=== PATIENT | female | born 1995 | race African-American/Black ===

== ENCOUNTER 2020-01-13 17:12 | Emergency (ER) | payer OTHER, SELFPAY ==
[2020-01-13 17:21] VITALS: BP 116/73; PULSE 94; RESP 16; TEMP 37.8; O2SAT 97; BMI 31.1
--- NOTE | 2020-01-13 18:05 | ED.NAVMDI ---
HPI - Nausea/Vomiting/Diarrhea General Chief complaint: Nausea/Vomiting/Diarrhea Stated complaint: head, ear and mouth pain, vomiting Time Seen by Provider: 01/13/20 18:04 History of Present Illness HPI Narrative: Otherwise healthy 24-year-old woman presents with 5 days of headache that throbs when she stands and 3-4 days of aphthous ulcers in her mouth, right ear pain and right-sided mouth/jaw pain. She has no noted fevers at home, no cough. She states that she has been chilled but has not had rigors. There is no skin changes. She vomited yesterday did not eat much today and continues to be mildly nauseated. There is no abdominal pain, hematuria, dysuria or diarrhea. Related Data Previous Rx's Medication Instructions Recorded ondansetron 4 mg PO Q8H PRN #10 tab 01/13/20 Review of Systems Review of Systems ROS Unobtainable: All systems reviewed & are unremarkable except as noted in HPI and below Patient History Medical History (Updated 01/13/20 @ 18:43 by Emily De MD) Healthy adult (Acute) Social History Smoking Status: Never smoker Smoking Status: Never smoker alcohol intake frequency: holidays/special occasions only Substance Use Type: does not use Exam Narrative Exam Narrative: General: Healthy appearing, in no acute distress. Able to give a complete and coherent history. Well-nourished well-developed HEENT: Moist mucous membranes, shallow aphthous ulcer on the buccal mucosa of the lower lip and also buccal mucosa near the molars on the right side. Normal sclera with reactive pupils, no pharyngeal exudate or erythema Neck: No cervical adenopathy, supple Respiratory: Lungs are clear to auscultation, no wheezing no rales no rhonchi. Full and symmetrical air movement Cardiac: Regular rate and rhythm no murmurs no bruits Abdomen: Soft nontender good bowel tones, no flank pain Skin: Warm and dry, no rashes Extremities: No trauma, well perfused Psych: Cooperative, appropriate insight and affect Initial Vital Signs Initial Vital Signs: Vital Signs Temperature 100.1 F H 01/13/20 17:21 Pulse Rate 94 H 01/13/20 17:21 Respiratory Rate 16 01/13/20 17:21 Blood Pressure 116/73 01/13/20 17:21 Pulse Oximetry 97 11/10/20 17:21 Course Orders Ordered: ED Orders 01/13/20 18:00 COVID19 Stat Discontinued Medications Ondansetron HCl (Zofran Odt) 4 mg SL NOW ONE Stop: 01/13/20 18:26 Vital Signs Vital signs: Vital Signs - 8 hr 01/13/20 17:21 Temperature 100.1 F H Pulse Rate 94 H Respiratory Rate 16 Blood Pressure 116/73 Pulse Oximetry 97 MDM - Nausea/Vomiting/Diarrhea Lab Data Labs: Lab Results 01/13/20 Range/Units 18:00 COVID-19 PCR Negative (Negative) MDM Narrative Medical decision making narrative: 24-year-old woman with no known COVID exposures and 3-5 days of mild viral syndrome. No evidence for a bacterial etiology, strep throat, otitis media, zoster, pneumonia and COVID negative. Safe for home discharge Discharge Plan Departure Patient Disposition: Home Clinical Impression: Acute viral syndrome Instructions: DI for Viral Syndrome Activity Restrictions/Additional Instructions: Thank you for coming in today Your exam is very reassuring. I suspect that you have a mild virus that is causing the headache that your pain and the small ulcers in your mouth. I have given you a prescription for ondansetron to help if you have recurrent nausea. You do not have COVID based on testing done today in the emergency department Using 400 mg of ibuprofen (2 lwnn-bem-[id number] pills) and 1 Tylenol every 6 hours can be very helpful in controlling pain, fever and that achy all over viral feeling. I hope you feel better Prescriptions: New ondansetron 4 mg tablet,disintegrating 4 mg PO Q8H PRN (Reason: nausea and vomiting) Qty: 10 RF: 0
[2020-01-13 18:51] LABS: COVID19 -Nasal RAPID Negative (Negative)
[2020-01-13] MEDS: ONDANSETRON 4 MG ODT SL (19:11)
== END 2020-01-13 19:13 | disposition home or self-care (01) ==
PROVIDERS: Emergency Medicine; Emergency Provider Emergency Medicine
DX: B34.9 Viral infection, unspecified (principal); H92.01 Otalgia, right ear; R11.10 Vomiting, unspecified; K12.1 Other forms of stomatitis
CPT/HCPCS: 87635; 99283

== ENCOUNTER → 2020-10-25 11:05 | Outpatient (CLI) | payer OTHER, SELFPAY ==
[2020-10-25 13:11] LABS: COVID19 -Nasal RAPID Negative (Negative)
== END ==
PROVIDERS: Visit Provider Nurse Practitioner
DX: Z20.822 Contact with and (suspected) exposure to COVID-19 (principal)
CPT/HCPCS: 87635

== ENCOUNTER 2020-10-26 11:38 | Day surgery (SDC) | payer OTHER, SELFPAY ==
[2020-10-26] MEDS: SODIUM CHLORIDE 0.9% 1,000 ML 84 ML IV (11:51)
[2020-10-26 12:02] VITALS: BP 114/76; PULSE 85; RESP 16; TEMP 36.4; O2SAT 96; BMI 32.8
--- NOTE | 2020-10-26 12:37 | PM.HP.1 ---
History of Present Illness History of Present Illness Date Patient Seen: 10/26/20 Time Patient Seen: 12:37 Chief complaint: CAC Patient History Medical History Healthy adult Family & Social History Social History: household members friend(s) Tobacco & Substance use: Smoking Status Never smoker alcohol intake current alcohol intake frequency holiday/special occasion Substance Use Type does not use Meds Home Medications and Allergies Home Medications Medication Instructions Recorded Confirmed Type No Known Home Medications 10/26/20 10/26/20 History Allergies Allergy/AdvReac Type Severity Reaction Status Date / Time No Known Drug Allergies Allergy Verified 10/26/20 12:09 Review of Systems Review of Systems ROS: Yes All systems reviewed with the patient and are negative except as otherwise documented Exam Vital Signs (past 8 hours): - 10/26/20 12:02 Temperature 97.5 F L Pulse Rate 85 Respiratory Rate 16 Blood Pressure 114/76 Pulse Oximetry 96 Oxygen Delivery Method Room Air Const General: cooperative and comfortable Orientation: alert HENMT Head: normocephalic Ears: external ears normal Nose: external nose normal Face and sinus: normal facial exam Mouth: oral mucosae normal Eyes General: appearance normal, both eyes and all related structures Neck Neck: normal visual inspection Chest Chest: normal inspection of the chest Resp Effort & Inspection: normal respiratory effort Auscultation: clear to auscultation bilaterally Cardio Rate: regular rate Rhythm: regular rhythm Heart Sounds: no murmurs GI Inspection: normal to inspection Palpation: soft and No tender Auscultation: normal bowel sounds Skin General: no rashes or lesions noted and No jaundice Neuro General: patient alert and moves all extremities Cognition: normal cognition Speech: speech normal Extrem General: no pedal edema Psych Appearance: grossly normal Assessment & Plan Assessment & Plan narrative: Change in bowel habits inability to acquire family history. Colonoscopy is pursued today.
--- NOTE | 2020-10-26 12:39 | PM.PREOP ---
Pre-operative Note COVID-19 COVID-19 status: Negative Result date/Date tested (Pos, Neg/Pending): 10/25/20 Interval Note History & Physical reviewed/Exam performed by Physician: Yes Changes to H&P: No ASA Class (for procedural sedation): II
[2020-10-26] MEDS: fentaNYL 250 MCG/5 ML INJ IV (12:44)
[2020-10-26] MEDS: MIDAZOLAM 5 MG/5 ML VIAL IV (12:45)
--- NOTE | 2020-10-26 13:00 | PM.OP.ENDO ---
Operative Date/Time/Diagnoses Date of procedure: 10/26/20 Time of procedure: 13:01 Pre-op diagnosis: Change in bowel habits constipation Post-op diagnosis: same Procedure & Clinicians Study performed: Colonoscopy Same procedure as scheduled: Yes Indications: Change in bowel habit constipation Surgeon: Naeem Duggan Procedure Notes SCOAP/Timeout: Done Procedure in detail: After the risks and benefits were explained, written and verbal informed consent was obtained. The patient was brought into the procedure room and placed into the left lateral decubitus position. Conscious sedation medication was applied as per nursing documentation. Digital rectal examination was accomplished. The scope was introduced into the patient and advanced under direct visualization to the cecum as identified by the appendiceal orifice and ileocecal valve. The scope was slowly withdrawn to carefully examine the mucosa for any defects or lesions. Comprehensive imaging was accomplished throughout the rectum including the dentate line. The colon was decompressed, the scope was then removed from the patient who tolerated the procedure well. 3 mg Versed 75 mcg fentanyl Bowel prep adequate Pediatric colonoscope Scope withdrawal time: 9 minutes Sedation minutes: 15 Specimen(s): none sent Complications: none Impression: Patient had a moderately tortuous sigmoid. However no strictures no mass lesions no polyps no inflammatory features identified throughout. The terminal ileum was interrogated and appeared visually normal. There was a foreign body found in the ascending colon this appeared circular and metallic we removed this with a standard Cordova Net. Prior to sedation digital rectal examination was accomplished. The anal sphincter mechanism felt fairly tense but easily facilitated a lubricated gloved index finger. The patient was able to contract the external anal sphincter musculature and pupil rectalus muscle on command. The the patient was able to for the most part expel my finger. I did not feel the external anal sphincter mechanism relax a whole lot. She was however able to generate a propulsive force to evacuate the finger. Endoscopic diagnosis 1. Twisty left colon 2. Otherwise visually normal colonoscopy and terminal ileoscopy 3. Small right colon foreign body status post successful retrieval Post-procedure Plan for aftercare: 1. Stay hydrated and active 2. Consider a daily fiber regimen plus/minus over the counter Mirlax as needed. 3. Follow up GI clinic in the next 4-6 weeks to review response. 4. Should there be persistent symptoms of troublesome constipation than a Sitz marker study will be arranged. Disposition: PACU
[2020-10-26 13:06] VITALS: BP 96/50; PULSE 70; RESP 14; TEMP 36.2; O2SAT 98
[2020-10-26 13:11] VITALS: BP 96/50; PULSE 69; RESP 18; O2SAT 98
[2020-10-26 13:16] VITALS: BP 103/57; PULSE 82; RESP 15; O2SAT 99
[2020-10-26 13:21] VITALS: BP 102/56; PULSE 83; RESP 14; O2SAT 98
[2020-10-26 13:36] VITALS: BP 95/58; PULSE 90; RESP 14; TEMP 36.2; O2SAT 98
== END 2020-10-26 13:48 | disposition home or self-care (01) ==
PROVIDERS: PCP Student in an Organized Health Care Education/Training Program; Referring Provider Internal Medicine Gastroenterology; Visit Provider Internal Medicine Gastroenterology
PROC: 0DJD8ZZ Inspection of Lower Intestinal Tract, Via Natural or Artificial Opening Endoscopic (ICD-10-PCS; CPT 45378; principal; 2020-10-26 13:00)
DX: T18.4XXA Foreign body in colon, initial encounter (principal)
CPT/HCPCS: 45379; J2250; J3010

== ENCOUNTER → 2020-12-27 08:05 | Outpatient (CLI) | payer OTHER, SELFPAY ==
[2020-12-27 14:48] LABS: COVID19 -Nasal RAPID Negative (Negative)
== END ==
PROVIDERS: PCP Student in an Organized Health Care Education/Training Program; Visit Provider Obstetrics & Gynecology
DX: Z20.822 Contact with and (suspected) exposure to COVID-19 (principal); Z01.812 Encounter for preprocedural laboratory examination
CPT/HCPCS: 87635

== ENCOUNTER 2020-12-28 13:29 | Day surgery (SDC) | payer OTHER, SELFPAY ==
[2020-12-27 10:54] VITALS: BMI 34.0
[2020-12-28] VITALS (7 sets, daily range): BP systolic 96–117; BP diastolic 58–76; PULSE 61–102; RESP 13–21; TEMP 36.2–36.6; O2SAT 19–98; BMI 31.7
--- NOTE | 2020-12-28 | PATH_ITS ---
[facility] Accession Number: [id number] . 01 Material submitted: . UTERINE - UTERINE FIBROIDS . 01 Clinical history: . LAP MYOMECTOMY . 02 Diagnosis: Uterine Fibroids, Myomectomy: Mature smooth muscle consistent with leiomyoma(s). No evidence of malignancy. MRV 12/31/2020 1407 Local . 02 Electronically signed: . Ivy Parekh MD, Pathologist NPI- [id number] . 01 Gross description: . The specimen is received in formalin, labeled uterine fibroids and consists of multiple conley-white leiomyomata fragments weighing 68 grams in aggregate and measuring 10.0 x 8.5 x 5.5 cm. Sectioning reveals conley-white whorled cut surfaces with no areas of hemorrhage, necrosis or cystic degeneration. Customer Project Manager sections are submitted in cassettes A1-A5. ([id number]) /MRV 12/29/2020 1142 Local . 02 Pathologist provided ICD-10: D25.9 . 02 CPT . 704227 Performed at: 01 [facility] [address], [place], [place] [id number] MD Joshua Muñiz MD Phone: [phone] Performed at: 02 [facility] [address] [place], [place] [id number] MD Sima Lopez MD Phone: [phone]
[2020-12-28] MEDS: LACTATED RINGERS 1,000 ML 100 ML IV ×2 (14:20→16:24)
--- NOTE | 2020-12-28 14:33 | PM.PREOP ---
Pre-operative Note COVID-19 COVID-19 status: Negative Result date/Date tested (Pos, Neg/Pending): 12/27/20 Interval Note History & Physical reviewed/Exam performed by Physician: Yes Changes to H&P: No
--- NOTE | 2020-12-28 14:57 | SUR.OPER ---
Lithotomy on padded OR bed, head on pillow, arms secured on padded arm boards at <90 degrees abduction. Legs secured in padded yellow fins stirrups.
[2020-12-28] MEDS: CEFAZOLIN 1 GM VIAL 2 GM IV (15:25)
[2020-12-28] MEDS: BUPIVACAINE 0.5% (PF) 30 ML, EPINEPHrine 0.15 MG INJ (15:56)
[2020-12-28] MEDS: METHYLENE BLUE 50 MG/10 ML VIAL INJ (16:01)
[2020-12-28] MEDS: SODIUM CHLORIDE 0.9% 30 ML, VASOPRESSIN 20 UNIT INJ (16:02)
--- NOTE | 2020-12-28 17:07 | PM.OP.1 ---
Operative Date/Time/Diagnoses Date of procedure: 12/28/20 Time of procedure: 17:08 Pre-op diagnosis: Abdominal pain, bloating, pedunculated fibroid on ultrasound Post-op diagnosis: same Procedure & Clinicians Procedure: Laparoscopy with removal of 2 subserosal fibroids Same procedure as scheduled: Yes Indications: Abdominal pain and bloating with pedunculated fibroid seen on ultrasound Surgeon: Mahsa Lyman Click Yes if Unassisted: Yes Anesthesia Type: General Operative Notes Findings: Normal liver edge, normal bowel surface, normal appearing appendix, no internal hernias or endometriosis. 1 large and 1 small subserosal fibroid with 2 intramural fibroids. Normal-appearing tubes, ovaries. Closure Type: primary Specimen(s): other (Uterine fibroids) Estimated Blood Loss (mL): 20 Blood products transfused: none Procedure in detail: Patient was brought to the operating room where she underwent general anesthesia. She was placed in low yellowfin stirrups and prepped and draped in usual sterile fashion. 2 g of Ancef were in prior to beginning of the case. Pulsatile stockings were in place and functional. Warming was with blankets. A single-tooth tenaculum was placed on the anterior lip of the cervix and the cervix dilated to #6 Hegar dilator. The Zumi uterine manipulator was placed and balloon inflated with 3 mL of air. The area of the incisions were injected with half percent Marcaine with epinephrine. An incision was made in the umbilicus with a scalpel and the Verres needle placed in the abdomen. Confirmation of correct placement of the needle was performed by withdrawing on the syringe and then allowing fluid to fall freely through the needle. The abdomen was insufflated to 3 L of CO2. A 5 mm trocar was placed under direct visualization. 2 other 5 mm trochars were placed in the right and left lower quadrant under direct visualization after incising the skin. There did not appear to be any damage with placement of the trocars. The abdomen was examined. Using a spinal needle through the abdominal wall the base of the fibroid was injected. Using cautery the fibroid was removed coming across the stalk. Bleeding was stopped with cautery. A 2nd smaller fibroid was also removed with cautery. The area of a suprapubic incision site was injected with Marcaine with epinephrine. An 11 mm trocar was placed under direct visualization. An Endo-Catch bag was placed through the trocar and the 2 fibroids were placed in the bag. The bag was brought up to the incision and the fibroid was morcellated to allow to be removed without spilling in the abdomen. The abdomen was examined an adequate hemostasis noted. The CO2 was allowed to escape from the abdomen. The trochars were removed. Skin was closed with 4-0 monocryl. The patient went to recovery room in good condition. Counts of instruments and sponges were correct. Complications: none Post-operative Condition: stable Disposition: same day surgery Plan for aftercare: Home when awake and stable
[2020-12-28] MEDS: OXYCODONE IR 5 MG TABLET PO (17:52)
== END 2020-12-28 18:26 | disposition home or self-care (01) ==
PROVIDERS: PCP Student in an Organized Health Care Education/Training Program; Referring Provider Specialist; Visit Provider Specialist
PROC: 0UB94ZZ Excision of Uterus, Percutaneous Endoscopic Approach (ICD-10-PCS; CPT 58545; principal; 2020-12-28 15:00)
DX: D25.1 Intramural leiomyoma of uterus (principal); D25.2 Subserosal leiomyoma of uterus
CPT/HCPCS: 58545; 81025; J0171; J0690; J1100; J1885; J2405; J3010; Q9968

== ENCOUNTER → 2021-11-16 17:21 | Outpatient (CLI) | payer OTHER, SELFPAY ==
[2021-11-16 18:06] LABS: Add Manual Diff / Slide Review NO; Basophils Absolute Auto 0 /uL (0-100); Basophils Percent Auto 0.6 % (0-2); Eosinophils Absolute Auto 100 /uL (0-450); Eosinophils Percent Auto 1.4 % (2-4); Hematocrit 36.4 % (36-46); Hemoglobin 12.4 g/dL (12.0-16.0); Lymphocytes Absolute Auto 1200 /uL (1100-4500); Lymphocytes Percent Auto 16.2 % (25-40); Mean Corpuscular Hemoglobin 28.7 PG (26-34); Mean Corpuscular Volume 84.4 fL (80-100); Monocytes Absolute Auto 500 /uL (0-900); Monocytes Percent Auto 7.5 % (3-14); Neutrophils Absolute Auto 5300 /uL (1500-7000); Neutrophils Percent Auto 74.3 % (50-75); Platelet Count 180 X10^3/uL (150-400); Red Blood Cell Count 4.32 X10^6/uL (4.0-5.2); Red Cell Distribution Width 13.1 % (11.6-14.8); White Blood Cell Count 7.2 X10^3/uL (4.5-11.0)
[2021-11-17 16:44] LABS: Hepatitis B Surface Antigen NEGATIVE s/c (NEGATIVE); Rubella Antibody IgG > 350.0 IU/mL (>15)
[2021-11-17 17:06] LABS: HIV 1 & 2 Ab/Ag 4th Gen Combo NEGATIVE (NEGATIVE); Hep C Virus Ab w/Reflex Quant NEGATIVE s/c (NEGATIVE)
[2021-11-18 04:55] LABS: RPR Screen Non Reactive (Non Reactive)
[2021-11-18 08:31] LABS: Varicella IgG Antibody 792 index (Immune >165)
== END ==
PROVIDERS: PCP Student in an Organized Health Care Education/Training Program; Referring Provider Obstetrics & Gynecology; Visit Provider Obstetrics & Gynecology
DX: Z34.01 Encounter for supervision of normal first pregnancy, first trimester (principal)
CPT/HCPCS: 36415; 80055; 86787; 86803; 86850; 86900; 86901; 87389

== ENCOUNTER → 2021-12-14 15:14 | Outpatient (CLI) | payer OTHER, SELFPAY ==
[2021-12-14 16:52] LABS: Urine N gonorrhoeae NOT DETECTED
[2021-12-14 16:55] LABS: Urine Chlamydia NOT DETECTED
== END ==
PROVIDERS: Visit Provider Obstetrics & Gynecology
DX: Z34.02 Encounter for supervision of normal first pregnancy, second trimester (principal); Z3A.16 16 weeks gestation of pregnancy
CPT/HCPCS: 87491; 87591

== ENCOUNTER → 2022-01-09 14:02 | Outpatient (CLI) | payer OTHER, SELFPAY ==
[2022-01-09 19:05] LABS: Appearance Urine UA CLOUDY; Bilirubin Urine UA NEGATIVE (NEGATIVE); Color Urine UA YELLOW; Glucose Urine UA TRACE g/dL (Negative); Ketones Urine UA TRACE (NEGATIVE); Leukocyte Esterase Urine UA 1+ (NEGATIVE); Nitrite Urine UA NEGATIVE (Negative); Occult Blood Urine UA TRACE-LYSED (Negative); Protein Urine UA TRACE (Negative); Urobilinogen Urine UA 0.2 E.U./dL (0.2)
[2022-01-09 19:18] LABS: Amorphous Sediment Urine 3+; Bacteria Urine Occasional (0-1); RBC Urine 0-1/HPF (0-5/HPF); Uric Acid Crystals Urine Occasional; WBC Urine 0-1/HPF (0-5/HPF)
== END ==
PROVIDERS: Visit Provider Obstetrics & Gynecology
DX: Z34.01 Encounter for supervision of normal first pregnancy, first trimester (principal)
CPT/HCPCS: 81003; 81015; 87086

== ENCOUNTER → 2022-01-20 08:51 | Outpatient (CLI) | payer OTHER, SELFPAY ==
--- NOTE | 2022-01-20 08:53 | DI.US.S_ITS ---
PROCEDURE: US OB >= 14 WEEKS FETUS INDICATIONS: 20 week anatomy scan OUTSIDE/PRIOR DATING DATA: Last menstrual period (LMP): 08/21/2021. LMP-based estimated date of delivery (MARIMAR): 05/28/2022. First dating scan (date and location): This exam. Estimated date of delivery (MARIMAR) from first ultrasound scan: 05/29/2022. The calculations are made using the working MARIMAR of 05/28/2022. TECHNIQUE: Real-time scanning was performed of the fetus, with image documentation and biometric measurements. Endovaginal scanning: Not performed COMPARISON: None. FINDINGS: General: A single living intrauterine gestation is present. Presentation: Cephalic. Placenta: Placental position is anterior , without previa. Amniotic fluid index: 18.5 cm, normal range is 5-24 cm. Single deepest vertical pocket is 7.0 cm. heart rate: 150 beats per minute. Maternal cervical canal: 3.7 cm long. Normal lower limit is 2.5 cm. biometrics: Biparietal diameter: 22 weeks 0 day Head circumference: 21 weeks 2 days Abdominal circumference: 21 weeks 4 days Femur length: 21 weeks 4 days Clinically estimated gestational age: 21 weeks 5 days Composite gestational age from present scan: 21 weeks 4 days Estimated weight and percentile: 432 g; 35%. Anatomic survey: Neuro: Ventricles are non-dilated at less than 10 mm. Cisterna magna is normal at 3-11 mm. Cerebellum is normal in size and morphology. Nuchal skin fold: Normal at less than 6 mm between 14-21 weeks gestational age. Face: Nose and lips, facial profile are normal. Spine: No evidence for spina bifida. Heart: 4-chambered heart is present, with normal ventricular outflow tracts. Diaphragm: Diaphragm is intact. Stomach: Left-sided stomach is present. Kidneys: No hydronephrosis. Normal is less than 5 mm in 2nd trimester, less than 7 mm in 3rd trimester. Cord: 3-vessel cord has orthotopic insertion. Bladder: Normal in size. Extremities: All 4 extremities identified. Other: There are multiple uterine fibroids. There is a 4.1 x 4.2 x 3.5 cm fibroid in the anterior uterine wall behind the placenta. A 4.6 x 5.1 x 4.5 cm fibroid is seen in the anterior fundus adjacent to the placenta. In addition, there is a 5.0 x 4.0 x 4.3 cm fibroid in the right lateral IMPRESSION: 1. A single living intrauterine gestation with growth concordant with clinical dating. 2. Normal anatomic survey. 3. Multiple uterine fibroids. We strive to produce accurate, complete, and clear reports of imaging services. To assist us in improving patient care, this report was composed using standard report templates and voice recognition software. Therefore, it may contain abnormal punctuation, insertions and/or omissions. Occasional wrong-word or sound-alike substitutions may occur. Though we review the report and make efforts to correct it, we do recommend that the report be read carefully in proper context to recognize any text inaccuracies. Dictated by: Tiffany Bruce M.D. on 01/20/2022 at 15:03 Approved by: Tiffany Bruce M.D. on 01/20/2022 at 15:14
== END ==
PROVIDERS: Referring Provider Obstetrics & Gynecology; Visit Provider Obstetrics & Gynecology
DX: O34.12 Maternal care for benign tumor of corpus uteri, second trimester (principal); D25.9 Leiomyoma of uterus, unspecified; Z3A.21 21 weeks gestation of pregnancy
CPT/HCPCS: 76811

== ENCOUNTER → 2022-03-08 15:04 | Outpatient (CLI) | payer OTHER, SELFPAY ==
--- NOTE | 2022-03-08 15:06 | DI.US.S_ITS ---
PROCEDURE: US OB LIMITED INDICATIONS: GROWTH SECONDARY FIBROIDS OUTSIDE/PRIOR DATING DATA: Last menstrual period (LMP): August 21, 2021. LMP-based estimated date of delivery (MARIMAR): May 28, 2022. First dating scan (date and location): January 20, 2022. Estimated date of delivery (MARIMAR) from first dating scan: May 27, 2022. The calculations are made using the clinical MARIMAR of May 28, 2022. TECHNIQUE: Real-time scanning was performed of the fetus, with image documentation and biometric measurements. Endovaginal scanning: Not performed COMPARISON: formerly [facility], OB >= 14 WEEKS FETUS, 01/20/2022, 9:06. FINDINGS: General: A single living intrauterine gestation is present. Presentation: Vertex. Placenta: Placental position is anterior , without previa. Amniotic fluid index: 24.6 cm, normal range is 5-24 cm. Single deepest vertical pocket is 7.7 cm. heart rate: 133 beats per minute. Maternal cervical canal: 4.9 cm long. Normal lower limit is 2.5 cm. Incidental note of nabothian cyst. biometrics: Biparietal diameter: 7.3 cm, 29 weeks and 2 days Head circumference: 25.83 cm, 28 weeks and 1 day Abdominal circumference: 23.33 cm, 27 weeks and 5 days Femur length: 5.24 cm, 27 weeks and 6 days Clinically estimated gestational age: 28 weeks and 3 days Composite gestational age from present scan: 28 weeks and 2 days Estimated weight and percentile: 1143 g/20th percentile Other: Multiple uterine fibroids are again noted. Anterior fundal subserosal retroplacental fibroid measures 3.0 x 3.7 x 3.1 cm, previously 4.6 x 5.1 x 4.5 cm. Anterior mid uterine subserosal retroplacental fibroid measures 4.3 x 3.8 x 2.7 cm, previously 4.1 x 4.2 x 3.5 cm. Right lateral inferior subserosal fibroid measuring 3.8 x 3.6 x 4.4 cm, previously 5.0 x 4.0 x 4.3 cm. IMPRESSION: Single intrauterine gestation with estimated sonographic gestational age of approximately 28 weeks and 2 days. Normal interval growth has occurred. Estimated weight measures 1143 g which correlates with the 20th percentile based off gestational age. Prominent four-quadrant SARAI measuring 24.6 cm with largest vertical pocket measuring 7.7 cm. Multiple uterine fibroids are again noted and have decreased in size. We strive to produce accurate, complete, and clear reports of imaging services. To assist us in improving patient care, this report was composed using standard report templates and voice recognition software. Therefore, it may contain abnormal punctuation, insertions and/or omissions. Occasional wrong-word or sound-alike substitutions may occur. Though we review the report and make efforts to correct it, we do recommend that the report be read carefully in proper context to recognize any text inaccuracies. Dictated by: Camron Mendez M.D. on 03/09/2022 at 8:56 Approved by: Camron Mendez M.D. on 03/09/2022 at 9:03
[2022-03-08 16:34] LABS: Hematocrit 34.1 % (36-46)
[2022-03-08 17:40] LABS: GTT (PREG) 1 Hour PP 50gm Dose 81 mg/dL (76-139)
== END ==
PROVIDERS: Referring Provider Obstetrics & Gynecology; Visit Provider Obstetrics & Gynecology
DX: O34.13 Maternal care for benign tumor of corpus uteri, third trimester (principal); D25.2 Subserosal leiomyoma of uterus; Z3A.28 28 weeks gestation of pregnancy
CPT/HCPCS: 36415; 76815; 76817; 82950; 85014; 85018

== ENCOUNTER → 2022-04-03 15:14 | Outpatient (CLI) | payer OTHER, SELFPAY ==
--- NOTE | 2022-04-03 15:15 | DI.US.S_ITS ---
PROCEDURE: US OB LIMITED INDICATIONS: EFW; EVALUATE FIBROIDS OUTSIDE/PRIOR DATING DATA: Last menstrual period (LMP): 08/21/2021. LMP-based estimated date of delivery (MARIMAR): 05/28/2022. First dating scan (date and location): 01/20/2022. Estimated date of delivery (MARIMAR) from first dating scan: 05/27/2022. The calculations are made using the working MARIMAR of 05/28/2022. TECHNIQUE: Real-time scanning was performed of the fetus, with image documentation. Endovaginal scanning: Non COMPARISON: [facility], OB LIMITED, 03/08/2022, 16:32. FINDINGS: A single living intrauterine gestation is present. Presentation: Vertex. Placenta: Placental position is anterior, without previa. Amniotic fluid index: 13.6 cm, normal range is 5-24 cm. Single deepest vertical pocket is 9.3 cm. heart rate: 140 beats per minute. Maternal cervical canal: 4.4 cm long. Normal lower limit is 2.5 cm. Clinically estimated gestational age: 32 week 1 day Estimated gestational age from initial scan: 31 week 6 day. Incidental uterine fibroids are noted, largest measures 4.9 cm in the inferior lateral myometrium. Two additional smaller fibroids noted. IMPRESSION: Single live intrauterine consistent with 31 week 6 day gestation by current ultrasound Uterine fibroids Approved by: Sheldon Thomas M.D. on 04/03/2022 at 17:33
== END ==
PROVIDERS: Referring Provider Obstetrics & Gynecology; Visit Provider Obstetrics & Gynecology
DX: O34.10 Maternal care for benign tumor of corpus uteri, unspecified trimester (principal); D25.9 Leiomyoma of uterus, unspecified; O34.12 Maternal care for benign tumor of corpus uteri, second trimester; Z3A.28 28 weeks gestation of pregnancy
CPT/HCPCS: 76815

== ENCOUNTER → 2022-05-01 09:40 | Outpatient (CLI) | payer OTHER, SELFPAY ==
--- NOTE | 2022-05-01 09:41 | DI.US.S_ITS ---
PROCEDURE: US OB LIMITED INDICATIONS: GROWTH AND SARAI OUTSIDE/PRIOR DATING DATA: Last menstrual period (LMP): 08/21/2021 LMP-based estimated date of delivery (MARIMAR): 05/28/2022 First dating scan (date and location): 01/20/2022 Estimated date of delivery (MARIMAR) from first dating scan: 05/27/2022. The calculations are made using the working MARIMAR of 05/28/2022. TECHNIQUE: Real-time scanning was performed of the fetus, with image documentation. Endovaginal scanning: Not indicated COMPARISON: [facility], OB LIMITED, 04/03/2022, 15:31. FINDINGS: A single living intrauterine gestation is present. Presentation: Vertex Placenta: Placental position is anterior, without previa. Amniotic fluid index: 15.7 cm, normal range is 5-24 cm. Single deepest vertical pocket is 6.3 cm. heart rate: 130 beats per minute. Maternal cervical canal: 3.8 cm long. Normal lower limit is 2.5 cm. BPD: 9.1 cm, 36 weeks, 5 days. HC: 32.3 cm, 36 weeks, 3 days. AC: 32.6 cm, 36 weeks, 4 days. FL: 7.1 cm, 36 weeks, 3 days. Estimated weight: 2962 g, 63%. Clinically estimated gestational age: 36 weeks, 4 days. Estimated gestational age from initial scan: 36 weeks, 1 day. Anterior fundal retroplacental uterine fibroid is seen measures 3.9 x 2.6 x 3.9 cm compared to 3.7 x 2.6 x 3.8 cm on previous study. Anterior retroplacental fibroid measures 3.5 x 2.2 x 3.4 cm in size is also seen previously measures 3.9 x 2.7 x 3.8 cm in size. Previously described right inferior lateral fibroid is again seen measures 4.4 x 3.3 x 4 cm in size, previously 4.9 x 4 x 3.9 cm in size. IMPRESSION: 1. Single live intrauterine gestation with fetus in vertex presentation. heart rate is 130 beats per minute. Normal amount of amniotic fluid. Normal growth. Estimated weight is at 63%. 2. Multiple uterine fibroids as described above unchanged or smaller compared to prior study. Dictated by: Ernesto Brown M.D. on 05/01/2022 at 11:24 Approved by: Ernesto Brown M.D. on 05/01/2022 at 11:34
== END ==
PROVIDERS: Referring Provider Physician Assistant Medical; Visit Provider Physician Assistant Medical
DX: O34.13 Maternal care for benign tumor of corpus uteri, third trimester (principal); D25.9 Leiomyoma of uterus, unspecified; O99.891 Other specified diseases and conditions complicating pregnancy; R31.9 Hematuria, unspecified; R80.9 Proteinuria, unspecified; Z3A.36 36 weeks gestation of pregnancy
CPT/HCPCS: 76815; 82570; 84156; 87086; 87653

== ENCOUNTER → 2022-05-01 14:06 | Outpatient (CLI) | payer OTHER, SELFPAY ==
[2022-05-01 20:07] LABS: Creatinine Urine Random 253.5 mg/dL
[2022-05-01 20:10] LABS: Protein (Total) Urine Random < 5 mg/dL (0-12); Protein Creatinine Ratio Urine 0.01 GRAM/24H
[2022-05-02 12:37] LABS: Strep Grp B PCR POS for Grp B Strep
== END ==
PROVIDERS: Visit Provider Physician Assistant Medical
DX: O99.891 Other specified diseases and conditions complicating pregnancy (principal); R31.9 Hematuria, unspecified; R80.9 Proteinuria, unspecified; Z3A.36 36 weeks gestation of pregnancy
CPT/HCPCS: 82570; 84156; 87086; 87653

== ENCOUNTER 2022-05-27 17:26 | Inpatient (IN) | payer OTHER, SELFPAY ==
[2022-05-27 18:28] LABS: Add Manual Diff / Slide Review NO; Basophils Absolute Auto 100 /uL (0-100); Basophils Percent Auto 0.5 % (0-2); Eosinophils Absolute Auto 100 /uL (0-450); Eosinophils Percent Auto 0.5 % (2-4); Hematocrit 36.1 % (36-46); Hemoglobin 11.5 g/dL (12.0-16.0); Lymphocytes Absolute Auto 900 /uL (1100-4500); Mean Corpuscular HGB Conc 31.9 % (30-36); Mean Corpuscular Hemoglobin 25.7 PG (26-34); Mean Corpuscular Volume 80.5 fL (80-100); Monocytes Absolute Auto 900 /uL (0-900); Monocytes Percent Auto 8.2 % (3-14); Neutrophils Absolute Auto 9300 /uL (1500-7000); Neutrophils Percent Auto 82.8 % (50-75); Platelet Count 172 X10^3/uL (150-400); Red Blood Cell Count 4.48 X10^6/uL (4.0-5.2); Red Cell Distribution Width 15.2 % (11.6-14.8); White Blood Cell Count 11.2 X10^3/uL (4.5-11.0)
[2022-05-27] MEDS: PENICILLIN G POTASSIUM 5,000,000 UNIT in DEXTROSE 5% IN WATER 250 ML 250 UNIT IV (18:30)
[2022-05-27] MEDS: LACTATED RINGERS 1,000 ML 100 ML IV ×2 (18:30→22:37)
[2022-05-27] MEDS: ONDANSETRON 4 MG/2 ML INJ IV (18:51)
[2022-05-27 18:59] VITALS: BP 103/54
--- NOTE | 2022-05-27 19:03 | PM.OBHP.1 ---
OB HPI Date/Time Date of admission: 05/27/22 Date Patient Seen: 05/27/22 Time Patient Seen: 19:03 History of Present Condition Chief complaint: Labor : 1 Para: 0 Estimated Date of Delivery: 05/28/22 Estimated Gestational Age (weeks): 39 Narrative: Heidi Jama is a 27 year old female admitted in labor History of Present care: good care Dating criteria: LMP confirmed by 1st trimester US Ultrasounds: normal mid trimester US Obstetrical complications: none Medical complications: none Preadmission Labs Blood type: O (+) positive -: Antibody screen: negative, GBS status: positive, HBsAG: negative, HIV: negative, HSV 2: positive and RPR/VDLR: negative -: Chlamydia screen: not detected and Gonorrhea screen: not detected -: Rubella: immune HCAB: negative 1 hr GTT: 81 Evaluation Evaluation Baseline heart rate: 130 Variability: Moderate (11-25) monitor accelerations: Present Monitor Decelerations: Episodic (With emesis) Contraction Frequency (minutes): 3 Uterine Contraction Intensity: Strong/Firm Category of Tracing: Reactive Status: Category ll Dilation (cm): 2 Effacement (%): 90 station: -2 PFSH Medical History Adopted Healthy adult Uterine fibroid Surgical History Status post myomectomy (~12/30/20) [place] teeth extracted Social History marital status: number of children: 0 household members: spouse and friend(s) lives independently: Yes housing: apartment pets and animals: No education level: college (some college) 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) current occupational exposures/hazards: No special joseph needs: No travel history: recent (domestic only) seatbelt use: always water heater temp set < 120 deg: Yes working smoke detector in home: Yes fire extinguisher in home: Yes carbon monox detector in home: Yes firearms in home: Yes firearms unloaded and locked: Yes do you feel safe at home: Yes Smoking Status: Never smoker second hand exposure: Yes ( vapes, but trying to quit) alcohol intake: current substance use type: does not use during the past year weight has: remained stable well-balanced diet: daily or most days daily servings fruits/ve-4 caffeine: Yes (decreasing intake, aware of 200mg limit.) Type(s) of exercise: walking Meds Home Medications and Allergies Home Medications Medication Instructions Recorded Confirmed Type prenat.vits,kati,nhw-qcmo-rlvby 1 tab PO DAILY 10/10/21 05/22/22 History ferrous sulfate 324 mg (65 mg 324 mg PO DAILY #30 tabs 03/20/22 05/22/22 Rx iron) tablet,delayed release valacyclovir 500 mg tablet 500 mg PO BID #60 tabs 04/17/22 05/22/22 Rx (Valtrex) Allergies Allergy/AdvReac Type Severity Reaction Status Date / Time No Known Drug Allergies Allergy Verified 05/22/22 13:37 Review of Systems Review of Systems Narrative: Patient denies headaches, scotomata, epigastric pain. Good movement. She began saeed at 3:00 p.m. today. Had spontaneous rupture membranes with thin meconium. OB Exam Vital signs Blood Pressure: 103/54 Pulse Rate: 96 Temperature: 96.6 F Narrative Exam Narrative: HEENT exam within normal limits. Lungs are clear to auscultation and percussion. Thyromegaly. Abdomen is gravid. Fetus is vertex. Extremities without edema and nontender Objective Labs 05/27/22 17:50 Labs: Laboratory Results - last 24 hr 05/27/22 17:50 WBC 11.2 H RBC 4.48 Hgb 11.5 L Hct 36.1 MCV 80.5 MCH 25.7 L MCHC 31.9 RDW 15.2 H Plt Count 172 Neut % (Auto) 82.8 H Lymph % (Auto) 8.0 L [place] % (Auto) 8.2 Eos % (Auto) 0.5 L Baso % (Auto) 0.5 Neut # (Auto) 9300 H Lymph # (Auto) 900 L [place] # (Auto) 900 Eos # (Auto) 100 Baso # (Auto) 100 Assessment and Plan Assessment and Plan Assessment and Plan narrative: Term in active labor. Anticipate vaginal delivery. Patient requesting epidural.
[2022-05-27 19:07] VITALS: BP 103/54; PULSE 96; TEMP 35.9
--- NOTE | 2022-05-27 22:19 | P.OP.PRE_ITS ---
Pre-operative Note COVID-19 COVID-19 status: Not tested Interval Note History & Physical reviewed/Exam performed by Physician: Yes Changes to H&P: Yes H&P completed within 30 days and has changed as indicated here:: intoler ance of labor
--- NOTE | 2022-05-27 22:21 | PM.OBPNLAB ---
Date/Time Date Patient Seen: 05/27/22 Time Patient Seen: 22:21 Pain Control Pain control: epidural Pelvic Exam Dilation (cm): 3 Effacement (%): 90 station: -2 Amniotic membrane status: Ruptured (Meconium stained) Contractions Contractions on admission: regular Monitor mode: External Contraction frequency (min): 3 Contraction pattern: Regular Contraction intensity: Strong/Firm Status status: Category ll Heart Rate Baseline: 140 Monitor Accelerations: Present Monitor Decelerations: Late Monitor Variability: Minimal Assessment and Plan Assessment: active labor Plan: ( intolerance of labor)
--- NOTE | 2022-05-27 22:36 | SUR.OPER ---
Supine on Padded OR bed, head on pillow, safety belt at thigh, arms secured on padded arm boards at <90 degrees abduction. Bump under right buttock. Legs uncrossed with pillow under knees, gel pad to heels, tape over blanket to lower legs.
[2022-05-27] MEDS: PENICILLIN G POTASSIUM 3,000,000 UNIT/50 ML FROZ.PIGGY 100 UNIT IV ×2 (22:37→23:34)
--- NOTE | 2022-05-27 23:39 | SUR.OPER ---
Pre operative heart tones were around 72. Time of 2317. Placenta and cord delivered at 2320. Placenta and cord blood sent with L&D RN Rea Gomez.
[2022-05-27 23:56] VITALS: BP 98/41; PULSE 118; RESP 22; TEMP 36.6; O2SAT 97
[2022-05-28 00:01] VITALS: BP 104/47; PULSE 123; RESP 22; O2SAT 98
--- NOTE | 2022-05-28 00:04 | PM.OBCS.1 ---
Operative Date/Time/Diagnoses Date of procedure: 05/27/22 Time of procedure: 23:50 Pre-op diagnosis: intolerance of labor Post-op diagnosis: same Procedure & Clinicians Procedure: Primary low-transverse section Same procedure as scheduled: Yes Indications: Worsening category 2 heart rate tracing without significant progress in labor Surgeon: Mahsa Lyman Click Yes if Unassisted: Yes Anesthesia Type: Epidural Operative Notes Findings: Normal tubes, ovaries, uterus with fundal subserosal fibroid. Viable male . Closure Type: primary Specimen(s): cord blood and cord pH (7.1/7.2) Intraoperative meds administered: Pitocin Applied: Catheter (Rodriguez) Estimated Blood Loss (mL): 500 Blood products transfused: none Procedure in detail: The patient was brought to the operating room where she underwent injection of her epidural for anesthesia. She was placed in a supine position with a left lateral tilt. A Rodriguez catheter was in place. Pulsatile stockings were placed and functional throughout the case. Patient was receiving her 3rd dose of penicillin IV prior to the incision. Warming was in place. The patient was prepped and draped in usual sterile fashion. A low transverse incision was made with a scalpel and the incision was carried down to the fascial layer which was incised transversely with scissors. The midline attachments are superiorly and inferiorly. The rectus muscles were in the midline and the peritoneal incision was made with no damage to internal structures. The peritoneum was incised and superiorly and inferiorly. The incision was stretched with the surgeon and oncology physician assistant placing traction. Bladder blade was placed and a bladder flap was developed and the bladder held away from the lower uterine segment. An incision was made in the uterus with the scalpel and the incision was extended with stretching. The head was elevated out of the abdomen and with fundal pressure by the oncology physician assistant the baby was delivered. The infant was bulb suctioned for meconium stained fluid and handed off to the warmer. Cord pH and cord blood was collected. The placenta delivered spontaneously with traction. The uterus was cleaned with clean laps. The uterine incision was closed in 2 layers of 0 chromic suture the first a running locking layer the second an imbricating layer. The oncology physician assistant was helping to expose the incision. The bladder peritoneum was repaired with 2-0 Vicryl suture. The gutters were cleaned of any remaining fluids and ovaries and tubes were observed to be normal. Adequate hemostasis was noted. The perineum was closed with 2-0 Vicryl suture. The fascia layer was closed with 0 Vicryl suture with 2 stitches. The incision was irrigated and adequate hemostasis noted. The incision was closed with interrupted 3-0 Vicryl sutures and then a subcuticular stitch of 4-0 Vicryl suture. Steri-Strips were placed. The uterus was massaged to remove any clots. The patient went to recovery room in good condition. Counts of instruments and sponges were correct. Complications: none [place] Baby 1: Infant Gender: Male Presentation: vertex Position: Right Occiput Posterior Placental Delivery Description: Expressed Cord Vessel Description: 3 Vessels score (1 min): 7 score (5 min): 8 score (10 min): 9 Post-operative Condition: stable Disposition: other ( Center) Aftercare: routine postop
[2022-05-28 00:06] VITALS: BP 117/55; PULSE 107; RESP 22; O2SAT 99
[2022-05-28] MEDS: ACETAMINOPHEN 325 MG TABLET 650 MG PO ×3 (01:21→22:16)
[2022-05-28] MEDS: OXYCODONE IR 5 MG TABLET PO ×3 (01:22→22:16)
[2022-05-28] MEDS: KETOROLAC 30 MG/ML VIAL IV ×3 (05:28→18:34)
[2022-05-28] MEDS: LACTATED RINGERS 1,000 ML 100 ML IV ×2 (05:29→07:58)
[2022-05-28] MEDS: diphenhydrAMINE 50 MG/ML VIAL IV (08:00)
--- NOTE | 2022-05-28 11:16 | PM.OBPN.1 ---
Subjective - OB Subjective Patient comments: pain well controlled and other (Itching which has improved somewhat with Benadryl) baby status: doing well [place] feeding status: exclusively breast feeding Date Patient Seen: 05/28/22 Time Patient Seen: 11:16 Interval history: 12 hours postoperatively with no complaints. No headaches, scotomata, epigastric pain. Her incisional pain is well controlled. Exam Vital Signs (past 8 hours): Blood pressure 106/58, pulse of 87, temperature 97.1? Oxygen Delivery Method Room Air Narrative Exam Narrative: Abdomen is soft, nontender. Uterus is firm, at U, nontender. Dressing is clean, dry, intact. Mild lochia. Extremities without edema and nontender. Objective Labs 05/27/22 17:50 Labs: Laboratory Results - last 24 hr 05/27/22 05/27/22 17:50 18:38 WBC 11.2 H RBC 4.48 Hgb 11.5 L Hct 36.1 MCV 80.5 MCH 25.7 L MCHC 31.9 RDW 15.2 H Plt Count 172 Neut % (Auto) 82.8 H Lymph % (Auto) 8.0 L [place] % (Auto) 8.2 Eos % (Auto) 0.5 L Baso % (Auto) 0.5 Neut # (Auto) 9300 H Lymph # (Auto) 900 L [place] # (Auto) 900 Eos # (Auto) 100 Baso # (Auto) 100 Blood Type O Positive Antibody Screen Negative Assessment & Plan Plan day: 1 plan OB: routine postop care Time Spent With Patient Time: Total time spent is greater than 50% in coordination of care (as documented) at patient's floor/unit and/or counseling patient: Time with patient: less than 15 minutes
[2022-05-28] MEDS: LANOLIN OINT 7 GM 1 APPLIC TOP (18:34)
[2022-05-29] MEDS: OXYCODONE IR 5 MG TABLET PO (06:01)
[2022-05-29] MEDS: ACETAMINOPHEN 325 MG TABLET 650 MG PO ×2 (06:01→12:54)
[2022-05-29 06:52] LABS: Add Manual Diff / Slide Review NO; Basophils Absolute Auto 100 /uL (0-100); Basophils Percent Auto 0.4 % (0-2); Eosinophils Absolute Auto 100 /uL (0-450); Eosinophils Percent Auto 0.8 % (2-4); Hematocrit 25.8 % (36-46); Hemoglobin 8.4 g/dL (12.0-16.0); Lymphocytes Absolute Auto 1300 /uL (1100-4500); Lymphocytes Percent Auto 10.8 % (25-40); Mean Corpuscular HGB Conc 32.4 % (30-36); Mean Corpuscular Hemoglobin 25.8 PG (26-34); Mean Corpuscular Volume 79.4 fL (80-100); Monocytes Absolute Auto 1200 /uL (0-900); Monocytes Percent Auto 9.8 % (3-14); Neutrophils Absolute Auto 9300 /uL (1500-7000); Neutrophils Percent Auto 78.2 % (50-75); Platelet Count 144 X10^3/uL (150-400); Red Blood Cell Count 3.24 X10^6/uL (4.0-5.2); Red Cell Distribution Width 15.2 % (11.6-14.8); White Blood Cell Count 11.9 X10^3/uL (4.5-11.0)
[2022-05-29] MEDS: PRENATAL VIT,CALC/IRON/FOLIC 1 TABLET 1 TAB PO (12:55)
[2022-05-29] MEDS: DOCUSATE 100 MG CAPSULE PO (12:55)
[2022-05-29] MEDS: IBUPROFEN 600 MG TABLET PO (12:55)
[2022-05-29 17:54] VITALS: BP 109/59; PULSE 100; RESP 18; TEMP 36.3
== END 2022-05-29 16:44 | disposition home or self-care (01) | DRG 787 ==
PROVIDERS: Admitting Provider Specialist; Referring Provider Specialist; Visit Provider Specialist
PROC: 10D00Z1 Extraction of Products of Conception, Low, Open Approach (ICD-10-PCS; CPT 59514; principal; 2022-05-27 23:00)
DX: O76 Abnormality in fetal heart rate and rhythm complicating labor and delivery (principal); O98.52 Other viral diseases complicating childbirth; B00.9 Herpesviral infection, unspecified; O99.824 Streptococcus B carrier state complicating childbirth; Z3A.39 39 weeks gestation of pregnancy; Z37.0 Single live birth
CPT/HCPCS: 36415; 59025; 59050; 59510; 85025; 86850; 86900; 86901; G0379; J1200; J1885; J2274; J2405; J2540; J2590